=== PATIENT | female | born 1975 | race Caucasian/White ===

== ENCOUNTER 2018-04-03 03:00 | Emergency (ER) | payer BC ==
[~2018-04-03] VITALS: Ht 185.4 cm; Wt 145.1 kg
[2018-04-03 03:07] VITALS: BP 152/97
--- NOTE | 2018-04-03 03:43 | PHYS DOC ---
Past History Past Medical History: Asthma Past Surgical History: , Hysterectomy Alcohol Use: Rarely Drug Use: None Adult General Chief Complaint Chief Complaint: PAIN ON URINATION HPI HPI Male presents with one-day history of dysuria, urinary frequency, strong odor to her urine. The patient states these are the exact symptoms that she's had in the past when she's had a urinary tract infection. She was trying to wait to go to her PCP later this morning, but the pain is making it difficult to sleep and she was having some chills. She has no history of pyelonephritis in the past. She has not measured a fever. Review of Systems Review of Systems Constitutional: chills [] Eyes: Denies change in visual acuity, redness, or eye pain [] HENT: Denies nasal congestion or sore throat [] Respiratory: Denies cough or shortness of breath [] Cardiovascular: No additional information not addressed in HPI [] GI: Denies abdominal pain, nausea, vomiting, bloody stools or diarrhea [] : Dysuria, increased frequency[] Musculoskeletal: Denies back pain or joint pain [] Integument: Denies rash or skin lesions [] Neurologic: Denies headache, focal weakness or sensory changes [] Endocrine: Denies polyuria or polydipsia [] All other systems were reviewed and found to be within normal limits, except as documented in this note. Current Medications Current Medications Current Medications Medications (Trade) Dose Ordered [facility] Start Time Stop Time Status Last Admin Dose Admin Phenazopyridine HCl (Pyridium) 100 mg 1X ONCE 04/03/18 03:45 04/03/18 03:46 UNV Physical Exam Physical Exam Constitutional: Well developed, well nourished, no acute distress, non-toxic appearance. [] HENT: Normocephalic, atraumatic, bilateral external ears normal, oropharynx moist, no oral exudates, nose normal. [] Eyes: PERRLA, EOMI, conjunctiva normal, no discharge. [] Neck: Normal range of motion, no tenderness, supple, no stridor. [] Cardiovascular:Heart rate regular rhythm, no murmur [] Lungs & Thorax: Bilateral breath sounds clear to auscultation [] Abdomen: Suprapubic tenderness. [] Skin: Warm, dry, no erythema, no rash. [] Back: No tenderness, no CVA tenderness. [] Extremities: No tenderness, no cyanosis, no clubbing, ROM intact, no edema. [] Neurologic: Alert and oriented X 3, normal motor function, normal sensory function, no focal deficits noted. [] Psychologic: Affect normal, judgement normal, mood normal. [] Current Patient Data Vital Signs Vital Signs Date Time Temp Pulse Resp B/P (MAP) Pulse Ox O2 Delivery O2 Flow Rate FiO2 04/03/18 03:07 98.4 88 18 99 Room Air EKG EKG [] Radiology/Procedures Radiology/Procedures [] Course & Med Decision Making Course & Med Decision Making Pertinent Labs and Imaging studies reviewed. (See chart for details) The patient's urinalysis is significant for UTI. I will treat her with 1 g Keflex 2 times a day for 3 days. We will give her her first dose in the ED. She is stable for discharge at this time. [] Dragon Disclaimer Dragon Disclaimer This electronic medical record was generated, in whole or in part, using a voice recognition dictation system. Departure Departure: Referrals: ARIADNA RIZZO (PCP) LUH PERDOMO DO Apr 03, 2018 03:43
[2018-04-03] MEDS ORDERED: PHENAZOPYRIDINE 100 MG TABLET. PO ONE (03:45)
[2018-04-03] MEDS ORDERED: PHENAZOPYRIDINE 100 MG TABLET. ONE (03:50)
[2018-04-03 04:04] LABS: BACTERIA,URINE MOD /HPF (0-FEW); BILIRUBIN,URINE NEG (NEG); CLARITY,URINE HAZY; COLOR,URINE YELLOW; GLUCOSE,URINE NEG (NEG); NITRITE,URINE POS (NEG); RBC,URINE >40 /HPF (0-2); SQUAMOUS EPITHELIAL CELL,UR OCC /LPF; UROBILINOGEN,URINE 0.2 mg/dL (0.2 mg/dL); WBC,URINE >40 /HPF (0-4)
[2018-04-03] MEDS ORDERED: CEPHALEXIN 250 MG CAPSULE PO ONE (04:15)
[2018-04-03] MEDS ORDERED: CEPH-264 PO (04:16)
[2018-04-03] MEDS ORDERED: CEPHALEXIN 250 MG CAPSULE ONE (04:18)
[2018-04-03] MEDS ORDERED: ONDANSETRON ODT 4 MG TAB.RAPDIS ONE (04:19)
[2018-04-03] MEDS ORDERED: ONDANSETRON ODT 4 MG TAB.RAPDIS PO ONE (04:30)
== END 2018-04-03 04:26 | disposition home or self-care (01) ==
LOC: ER 03:00
DX: N39.0 Urinary tract infection, site not specified (principal); J45.909 Unspecified asthma, uncomplicated; Z90.710 Acquired absence of both cervix and uterus; Z98.890 Other specified postprocedural states
CPT/HCPCS: 81001; 87086; 99284; Q0162

== ENCOUNTER → 2020-09-20 | Outpatient (CLI) | payer BC, OTHER ==
[~2020-09-20] MED LIST: CEPH-264 PO
--- NOTE | 2020-09-20 11:06 | RAD ---
PROCEDURE: XR EXAM OF ANKLE_RIGHT 3VIEWS STUDY DATE: 09/20/2020 CLINICAL INDICATION / HISTORY: Reason: Pain on and off x2 weeks- most pain in lateral postion / Spl. Instructions: / History: . TECHNIQUE: Right ankle 3 views. COMPARISON: None FINDINGS: The ankle mortise is approximated, and the talar dome is unremarkable. The joint space widt hs are maintained. No fracture or dislocation is identified. All diffuse soft tissue swelling is appr eciated. IMPRESSION: Mild diffuse soft tissue swelling of the right ankle with no acute osseous abnormality. Electronically signed by: Regina Jones MD (09/20/2020 11:04 AM) [facility] [place]
== END ==
LOC: PMG 10:27
PROVIDERS: ATTEND Nurse Practitioner Family
DX: M25.471 Effusion, right ankle (principal); S99.911A Unspecified injury of right ankle, initial encounter; X58.XXXA Exposure to other specified factors, initial encounter; Y93.89 Activity, other specified; Y92.89 Other specified places as the place of occurrence of the external cause; Y99.8 Other external cause status
CPT/HCPCS: 73610

== ENCOUNTER → 2021-12-14 | Outpatient (CLI) | payer BC ==
--- NOTE | 2021-12-14 17:00 | RAD ---
XR CHEST 2V History: Reason: PRE-OP, RT KNEE REPLACEMENT / Spl. Instructions: / History: Comparison: None. Findings: Mild bibasilar linear atelectasis. No consolidation or pleural effusion. Normal heart size. No pneumo thorax. Impression: 1. No acute cardiopulmonary process. Electronically signed by: Shan Dawson DO (12/14/2021 4:58 PM) [id number]
== END ==
LOC: RAD 15:43
PROVIDERS: ATTEND Physician Assistant Medical
DX: Z01.818 Encounter for other preprocedural examination (principal)
CPT/HCPCS: 71046